=== PATIENT | female | born 2000 | race African-American/Black ===

== ENCOUNTER 2019-03-24 12:20 | Emergency (ER) | payer SELFPAY ==
[~2019-03-24] VITALS: Ht 157.5 cm; Wt 80.7 kg
[2019-03-24] MEDS ORDERED: diphenhydrAMINE 50 MG/ML VIAL IVP ONE (13:45)
[2019-03-24] MEDS ORDERED: PROCHLORPERAZINE 10 MG/2 ML VIAL. IV ONE (13:45)
[2019-03-24] MEDS ORDERED: KETOROLAC 30 MG/ML VIAL. IVP ONE (13:45)
[2019-03-24 13:49] LABS: BILIRUBIN,URINE NEGATIVE (NEG); CLARITY,URINE CLEAR; COLOR,URINE YELLOW; NITRITE,URINE NEGATIVE (NEG); PROTEIN,URINE NEGATIVE (NEG-TRACE)
[2019-03-24 13:57] LABS: RBC,URINE 0 /HPF (0-2)
[2019-03-24 13:58] LABS: BACTERIA,URINE MODERATE /HPF (0-FEW); SQUAMOUS EPITHELIAL CELL,UR MANY /LPF; WBC,URINE TNTC /HPF (0-4)
[2019-03-24 14:20] LABS: BASO % 1 % (0-3); EOS % 1 % (0-3); HEMATOCRIT 31.4 % (36.0-47.0); HEMOGLOBIN 9.9 g/dL (12.0-15.5); LYMPH % 21 % (24-48); MEAN CORPUSCULAR HEMOGLOBIN 23 pg (25-35); MEAN CORPUSCULAR HGB CONC 32 g/dL (31-37); MEAN CORPUSCULAR VOLUME 72 fL (79-100); MONO # 0.4 x10^3/uL (0.0-1.1); MONO % 9 % (0-9); NEUT # 3.1 x10^3/uL (1.8-7.7); NEUT % 69 % (31-73); PLATELET COUNT 353 x10^3/uL (140-400); RED BLOOD COUNT 4.37 x10^6/uL (3.50-5.40); WHITE BLOOD COUNT 4.6 x10^3/uL (4.0-11.0)
[2019-03-24 14:29] LABS: CALCIUM 8.7 mg/dL (8.5-10.1); CREATININE 0.8 mg/dL (0.6-1.0); GFR 110.7; POTASSIUM 3.4 mmol/L (3.5-5.1)
--- NOTE | 2019-03-24 14:38 | RAD ---
CT HEAD WO CONTRAST Date: 03/24/2019 1:45 PM Clinical Indication: Headache Comparison: None. Technique: 5 mm axial tomographic images were obtained of the head without contrast. These were viewed on brain and bone windows. One or more of the following dose reduction techniques were utilized: Automated exposure control (AEC), Adjustment of mA and/or kV according to patient size, Use of iterative reconstruction technique such as ASiR, CT scan done according to ALARA and image gently/image wisely Findings: The brain parenchyma is normal in attenuation. No intra- or extra-axial mass or fluid collection. No acute hemorrhage. The ventricles are normal in size, shape, and morphology. The martinez-white matter junction is normal. The subarachnoid cisterns are patent. The visualized paranasal sinuses are normal. The visualized portions of the orbits and globes are normal. The mastoid air cells are clear. The welder pipe making topogram shows no lytic lesion or fracture. Impression: No acute intracranial process. Electronically signed by: Antonino Jauregui MD (03/24/2019 2:35 PM) [facility]
[2019-03-24 14:39] LABS: ALBUMIN 3.9 g/dL (3.4-5.0); ALBUMIN/GLOBULIN RATIO 0.8 (1.0-1.7); TOTAL BILIRUBIN 0.5 mg/dL (0.2-1.0); TOTAL PROTEIN 9.1 g/dL (6.4-8.2)
--- NOTE | 2019-03-24 14:48 | PHYS DOC ---
Past Medical History Past Medical History: No Pertinent History Past Surgical History: No Surgical History Alcohol Use: Occasionally Drug Use: None Adult General Chief Complaint Chief Complaint: NAUSEA/VOMITING/DIARRHA HPI HPI Patient is a 18 year old female who presents with headache and dizziness that comes and goes at her bilateral temples for years. Patient states she will be light sensitive at times. 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 Patient states last night she got nauseated and vomited once this morning. Patient states she has a headache at this time is a 6 out of 10. Review of Systems Review of Systems Eyes: Denies change in visual acuity, redness, or eye pain. Photophobia[] HENT: Denies nasal congestion or sore throat. Headache. [] GI: Denies abdominal pain. + nausea, +vomiting, denies bloody stools or diarrhea [] All other systems were reviewed and found to be within normal limits, except as documented in this note. Current Medications Current Medications Current Medications Medications (Trade) Dose Ordered Sig/Christina Start Time Stop Time Status Last Admin Dose Admin Diphenhydramine HCl (Benadryl) 25 mg 1X ONCE 03/24/19 13:45 03/24/19 13:50 DC 03/24/19 14:15 25 MG Ketorolac Tromethamine (Toradol 30mg Vial) 30 mg 1X ONCE 03/24/19 13:45 03/24/19 13:50 DC 03/24/19 14:16 30 MG Prochlorperazine Edisylate (Compazine) 10 mg 1X ONCE 03/24/19 13:45 03/24/19 13:50 DC 03/24/19 14:15 10 MG Allergies Allergies Allergies Coded Allergies Type Severity Reaction Last Updated Verified No Known Drug Allergies 03/24/19 No Physical Exam Physical Exam Constitutional: Well developed, well nourished, no acute distress, non-toxic appearance. [] HENT: Normocephalic, atraumatic, bilateral external ears normal, oropharynx moist, no oral exudates, nose normal. [] Eyes: PERRLA, EOMI, conjunctiva normal, no discharge. Photophobia [] Neck: Normal range of motion, no tenderness, supple, no stridor. [] Cardiovascular:Heart rate regular rhythm, no murmur [] Lungs & Thorax: Bilateral breath sounds clear to auscultation [] Abdomen: Bowel sounds normal, soft, no tenderness, no masses, no pulsatile masses. [] Skin: Warm, dry, no erythema, no rash. [] Back: No tenderness, no CVA tenderness. [] Extremities: No tenderness, no cyanosis, no clubbing, ROM intact, no edema. [] Neurologic: Alert and oriented X 3, normal motor function, normal sensory function, no focal deficits noted. [] Psychologic: Affect normal, judgement normal, mood normal. [] Current Patient Data Vital Signs Vital Signs Date Time Temp Pulse Resp B/P (MAP) Pulse Ox O2 Delivery O2 Flow Rate FiO2 03/24/19 13:49 98.8 104 17 110/55 (73) 98 Room Air 98.8 Lab Values Laboratory Tests Test 03/24/19 13:20 03/24/19 13:26 03/24/19 14:08 Urine Collection Type Unknown Urine Color Yellow Urine Clarity Clear Urine pH 7.0 Urine Specific [place] >=1.030 Urine Protein Negative mg/dL (NEG-TRACE) Urine Glucose (UA) Negative mg/dL (NEG) Urine Ketones (Stick) Negative mg/dL (NEG) Urine Blood Negative (NEG) Urine Nitrite Negative (NEG) Urine Bilirubin Negative (NEG) Urine Urobilinogen Dipstick 1.0 mg/dL (0.2 mg/dL) Urine Leukocyte Esterase Moderate (NEG) Urine RBC 0 /HPF (0-2) Urine WBC Tntc /HPF (0-4) Urine Squamous Epithelial Cells Many /LPF Urine Bacteria Moderate /HPF (0-FEW) Urine Mucus Marked /LPF POC Urine HCG, Qualitative Hcg negative (Negative) White Blood Count 4.6 x10^3/uL (4.0-11.0) Red Blood Count 4.37 x10^6/uL (3.50-5.40) Hemoglobin 9.9 g/dL (12.0-15.5) L Hematocrit 31.4 % (36.0-47.0) L Mean Corpuscular Volume 72 fL (79-100) L Mean Corpuscular Hemoglobin 23 pg (25-35) L Mean Corpuscular Hemoglobin Concent 32 g/dL (31-37) Red Cell Distribution Width 17.0 % (11.5-14.5) H Platelet Count 353 x10^3/uL (140-400) Neutrophils (%) (Auto) 69 % (31-73) Lymphocytes (%) (Auto) 21 % (24-48) L Monocytes (%) (Auto) 9 % (0-9) Eosinophils (%) (Auto) 1 % (0-3) Basophils (%) (Auto) 1 % (0-3) Neutrophils # (Auto) 3.1 x10^3/uL (1.8-7.7) Lymphocytes # (Auto) 1.0 x10^3/uL (1.0-4.8) Monocytes # (Auto) 0.4 x10^3/uL (0.0-1.1) Eosinophils # (Auto) 0.0 x10^3/uL (0.0-0.7) Basophils # (Auto) 0.0 x10^3/uL (0.0-0.2) Platelet Estimate Adequate (ADEQUATE) Hypochromasia Mod Anisocytosis Microcytosis Mod Ovalocytes Occ Stomatocytes Occ Sodium Level 137 mmol/L (136-145) Potassium Level 3.4 mmol/L (3.5-5.1) L Chloride Level 101 mmol/L (98-107) Carbon Dioxide Level 26 mmol/L (21-32) Anion Gap 10 (6-14) Blood Urea Nitrogen 10 mg/dL (7-20) Creatinine 0.8 mg/dL (0.6-1.0) Estimated GFR (Cockcroft-Gault) 110.7 BUN/Creatinine Ratio 13 (6-20) Glucose Level 83 mg/dL (70-99) Calcium Level 8.7 mg/dL (8.5-10.1) Total Bilirubin 0.5 mg/dL (0.2-1.0) Aspartate Amino Transferase (AST) 18 U/L (15-37) Alanine Aminotransferase (ALT) 19 U/L (14-59) Alkaline Phosphatase 59 U/L (46-116) Total Protein 9.1 g/dL (6.4-8.2) H Albumin 3.9 g/dL (3.4-5.0) Albumin/Globulin Ratio 0.8 (1.0-1.7) L Lipase 65 U/L (73-393) L Laboratory Tests 03/24/19 14:08 Laboratory Tests 03/24/19 14:08 EKG EKG [] Radiology/Procedures Radiology/Procedures [] Impressions: [facility] [address] [place] [address] IMAGING REPORT Signed PATIENT: MICHAEL RADERACCOUNT: [id number] : 2000 LOCATION: ER AGE: 18 SEX: F EXAM STATUS: REG ER ORD. PHYSICIAN: INOCENCIA CHING APRN REASON: headache x about a month PROCEDURE: CT HEAD WO CONTRAST CT HEAD WO CONTRAST Date: 03/24/2019 1:45 PM Clinical Indication: Headache Comparison: None. Technique: 5 mm axial tomographic images were obtained of the head without contrast. These were viewed on brain and bone windows. One or more of the following dose reduction techniques were utilized: Automated exposure control (AEC), Adjustment of mA and/or kV according to patient size, Use of iterative reconstruction technique such as ASiR, CT scan done according to ALARA and image gently/image wisely Findings: The brain parenchyma is normal in attenuation. No intra- or extra-axial mass or fluid collection. No acute hemorrhage. The ventricles are normal in size, shape, and morphology. The martinez-white matter junction is normal. The subarachnoid cisterns are patent. The visualized paranasal sinuses are normal. The visualized portions of the orbits and globes are normal. The mastoid air cells are clear. The data integration developer topogram shows no lytic lesion or fracture. Impression: No acute intracranial process. Electronically signed by: Laurita Jauregui MD (03/24/2019 2:35 PM) [facility] DICTATED and SIGNED BY: LAURITA JAUREGIU MD DATE: 03/24/19 4256 Course & Med Decision Making Course & Med Decision Making She denies this being the worse headache she's ever had. Alert and oriented. Ambulatory with a steady gait. Skin pink warm and dry. PERRLA. She is photophobic. Patient denies drug use, alcohol use, abdominal pain, nausea, chest pain, shortness of air, dizziness, visual changes, numbness or tingling. Lungs are clear to auscultation all lobes. Abdomen is soft and nontender. Patient denies any nausea at this time. She denies any diarrhea or dysuria symptoms. She denies any back pain. No CVA tenderness. Patient denies any dizziness at this time. Mucous membranes moist. No signs within normal limits. Patient denies any neck pain or fevers. Patient states she has never gone to the doctors for her headaches that she's had for years. Patient states she has not been taking anything for headaches and that when the headaches come on she just awful she's doing and will rest and they will go away. Patient is given Compazine, Benadryl, Toradol. Patient states she is feeling much better. She denies any pain. Urinalysis shows infection.[] Dragon Disclaimer Dragon Disclaimer This electronic medical record was generated, in whole or in part, using a voice recognition dictation system. Departure Departure Impression: Primary Impression: Urinary tract infection Additional Impression: Headache Disposition: HOME, SELF-CARE Condition: STABLE Referrals: NO PCP (PCP) Patient Instructions: Migraine Headache, Urinary Tract Infection Additional Instructions: Follow-up with a primary care provider for her migraines. Take medications as prescribed. Drink plenty of fluids. Scripts Cephalexin (KEFLEX) 500 Mg Capsule 1 CAP PO BID for 7 Days, #14 CAP 0 Refills Prov: INOCENCIA CHING INFORMATICS CONSULTANT 03/24/19 Problem Qualifiers Primary Impression: Urinary tract infection Urinary tract infection type: site unspecified Hematuria presence: without hematuria Qualified Codes: N39.0 - Urinary tract infection, site not specified Additional Impression: Headache Headache type: unspecified Headache chronicity pattern: chronic headache Intractability: not intractable Qualified Codes: R51 - Headache INOCENCIA CHING INFORMATICS CONSULTANT Mar 24, 2019 14:48
[2019-03-24] MEDS ORDERED: CEPH-264 PO (14:59)
[2019-03-24 15:10] LABS: HYPOCHROMIA MOD; MICROCYTOSIS MOD; PLT ESTIMATE ADEQUATE (ADEQUATE)
[2019-03-24 15:11] LABS: OVALOCYTES OCC; STOMATOCYTES OCC
[2019-03-24 15:40] VITALS: BP 118/68
== END 2019-03-24 15:56 | disposition home or self-care (01) ==
LOC: ER 12:20
DX: N39.0 Urinary tract infection, site not specified (principal); R51 Headache
CPT/HCPCS: 36415; 70450; 80053; 81001; 81025; 83690; 85025; 87086; 96374; 96375; 99285; J0780; J1200; J1885